=== PATIENT | female | born 1945 | race Caucasian/White ===

== ENCOUNTER → 2019-04-03 | Outpatient (CLI) | payer MEDICARE ==
--- NOTE | 2019-04-03 14:58 | CARD ---
MR#: [id number] Date of Study: 04/03/2019 Ordering Physician: DARÍO JAMISON, Referring Physician: DARÍO JAMISON Tech: Cony Morillo RDCS APPROVED REPORT EXAM: Two-dimensional and M-mode echocardiogram with Doppler and color Doppler. Other Information Quality : Good INDICATION Chest Pain 2D DIMENSIONS RVDd2.7 (2.9-3.5cm)Left Atrium(2D)3.2 (1.6-4.0cm) IVSd1.2 (0.7-1.1cm)Aortic Root(2D)2.9 (2.0-3.7cm) LVDd4.6 (3.9-5.9cm)LVOT Diameter1.8 (1.8-2.4cm) PWd0.9 (0.7-1.1cm)LVDs2.9 (2.5-4.0cm) FS (%) 30.0 %SV63.1 ml LVEF(%)60.0 (>50%) Aortic Valve AoV Peak Bony.156.0cm/sAoV VTI30.8cm AO Peak GR.9.7mmHgLVOT Peak Bony.121.6cm/s LVOT VTI 25.40cmAO Mean GR.5mmHg RAÚL (VMAX)2.15al4OWL (VTI)2.20cm2 Mitral Valve MV E Ptzwxhio25.7cm/sMV DECEL WMSY437ia MV A Znscqroj894.5cm/sE/A Ratio0.7 Tricuspid Valve TR P. Ppihmjet482fg/sRAP KJRDQBQZ2ccLb TR Peak Gr.78fsNkPTIJ96bsOx Pulmonary Vein S1 Urtujtwl72.5cm/sD2 Jsjisteu04.2cm/s LEFT VENTRICLE The left ventricle is normal size. There is mild hypertrophy. The left ventricular systolic function is normal and the ejection fraction is within normal range. The Ejection Fraction is 55-60%. There is normal LV segmental wall motion. Transmitral Doppler flow pattern is Grade I-abnormal relaxation pat tern. RIGHT VENTRICLE The right ventricle is normal size. The right ventricular systolic function is normal. ATRIA The left atrium size is normal. The right atrium size is normal. The interatrial septum is intact wit h no evidence for an atrial septal defect or patent foramen ovale as noted on 2-D or Doppler imaging. AORTIC VALVE The aortic valve is calcified but opens well. Doppler and Color Flow revealed no significant aortic r egurgitation. There is no significant aortic valvular stenosis. MITRAL VALVE The mitral valve is normal in structure and function. Mitral annular calcification is mild. There is no evidence of mitral valve prolapse. There is no mitral valve stenosis. Doppler and Color Flow revea led no mitral valve regurgitation noted. TRICUSPID VALVE The tricuspid valve is normal in structure and function. Doppler and Color Flow revealed trace tricus pid regurgitation. The PA pressure was estimated at 27 mmHg. There is no tricuspid valve stenosis. PULMONIC VALVE Doppler and Color Flow revealed trace pulmonic valvular regurgitation. There is no pulmonic valvular stenosis. GREAT VESSELS The aortic root is normal in size. The ascending aorta is moderately dilated at 3.9 cm. The IVC is no rmal in size and collapses >50% with inspiration. PERICARDIAL EFFUSION There is no evidence of significant pericardial effusion. Critical Notification Critical Value: No <Conclusion> The left ventricular systolic function is normal and the ejection fraction is within normal range. T he Ejection Fraction is 55-60%. There is normal LV segmental wall motion. There is mild hypertrophy. The ascending aorta is moderately dilated at 3.9 cm. Signed by : Berry Green, Electronically Approved : 04/03/2019 14:58:14
== END | disposition home or self-care (01) ==
LOC: ECHO 14:03
PROVIDERS: ATTEND Specialist
DX: I08.0 Rheumatic disorders of both mitral and aortic valves (principal); J45.40 Moderate persistent asthma, uncomplicated
CPT/HCPCS: 93306

== ENCOUNTER → 2020-01-22 | Outpatient (CLI) | payer MEDICARE ==
--- NOTE | 2020-01-22 17:32 | RAD ---
EXAM: CHEST PA LATERAL INDICATION: Reason: chest pain mid sternum, hx asthma, non smoker / Spl. Instructions: / History: . TECHNIQUE: PA and lateral views COMPARISON: None FINDINGS: The heart size is normal. Great vessels show tortuosity to the descending thoracic aorta. There is no hilar or mediastinal mass. The lungs are clear. There is no pleural effusion or pneumothorax. There are no significant osseous abnormalities. IMPRESSION: No active cardiopulmonary disease. Electronically signed by: Daniel España MD (01/22/2020 5:29 PM) [id number]
== END | disposition home or self-care (01) ==
LOC: RAD 17:00
PROVIDERS: ATTEND Specialist
DX: M94.0 Chondrocostal junction syndrome [Tietze] (principal); Q25.46 Tortuous aortic arch
CPT/HCPCS: 71046

== ENCOUNTER → 2020-02-05 | Outpatient (CLI) | payer MEDICARE ==
--- NOTE | 2020-02-14 12:13 | RAD ---
DATE: 02/05/2020 EXAM: MAMMO HIREN SCREENING BILATERAL HISTORY: Screening COMPARISON: 07/27/2018, 06/16/2017 This study was interpreted with the benefit of Computerized Aided Detection (CAD). Breast Density: The breast parenchyma is heterogenously dense, which could reduce sensitivity of mammography. Breast parenchyma level C. FINDINGS: No suspicious mass, suspicious calcification, or architectural distortion in either breast. IMPRESSION: No evidence of malignancy in either breast. BI-RADS CATEGORY: 1 NEGATIVE RECOMMENDED FOLLOW-UP: Annual screening mammogram PQRS compliance statement: Patient information was entered into a reminder system with a target due date 02/05/2021 for the next mammogram. Mammography is a sensitive method for finding small breast cancers, but it does not detect them all and is not a substitute for careful clinical examination. A negative mammogram does not negate a clinically suspicious finding and should not result in delay in biopsying a clinically suspicious abnormality. "Our facility is accredited by the [employer] Mammography Program." DENICE
== END ==
LOC: MAMMO 15:17
PROVIDERS: ATTEND Specialist
DX: Z12.31 Encounter for screening mammogram for malignant neoplasm of breast (principal)
CPT/HCPCS: 77063; 77067

== ENCOUNTER → 2020-03-27 | Outpatient (CLI) | payer MEDICARE ==
--- NOTE | 2020-03-27 10:53 | RAD ---
INDICATION: Osteoporosis screening. Postmenopausal screening COMPARISON: None. TECHNIQUE: Bone densitometry was performed through the lumbar spine and proximal femur. FINDINGS: Lumbar Spine: BMD: 1.19 T-Score: 0 Degenerative changes the spine. Proximal Femur: BMD: 0.93 T-Score: -0.2 IMPRESSION: 1. Lumbar spine falls within the normal range. 2. Proximal femur falls within the normal range. Electronically signed by: Matthew Aquino MD (03/27/2020 10:51 AM) [id number]
== END ==
LOC: DXRAD 10:26
PROVIDERS: ATTEND Specialist
DX: Z00.00 Encounter for general adult medical examination without abnormal findings (principal); Z78.0 Asymptomatic menopausal state
CPT/HCPCS: 77080

== ENCOUNTER 2020-06-09 21:29 | Emergency (ER) | payer MEDICARE ==
[~2020-06-09] VITALS: Ht 157.5 cm; Wt 85.0 kg
[2020-06-09] MEDS ORDERED: DEXAMETHASONE 4 MG TABLET PO ONE (22:00)
[2020-06-09] MEDS ORDERED: PRED20TA PO (22:50)
--- NOTE | 2020-06-09 22:51 | PHYS DOC ---
Past History Past Medical History: Asthma General Adult EDM: Chief Complaint: BURN/SMOKE INHALATION HPI: HPI: Patient is a [age] year old [sex] who presents with [] Review of Systems: Review of Systems: Constitutional: Denies fever or chills Eyes: Denies redness or eye pain HENT: Denies nasal congestion or sore throat Respiratory: Denies cough or shortness of breath Cardiovascular: Denies chest pain or palpitations GI: Denies abdominal pain, nausea, or vomiting : Denies dysuria or hematuria Musculoskeletal: Denies back pain or joint pain Integument: Denies rash or skin lesions Neurologic: Denies headache, focal weakness or sensory changes Complete systems were reviewed and found to be within normal limits, except as documented in this note. Current Medications: Current Meds: Current Medications Medications (Trade) Dose Ordered Sig/Cody Start Time Stop Time Status Last Admin Dose Admin Dexamethasone (Decadron) 10 mg 1X ONCE 06/09/20 22:00 06/09/20 22:01 DC Allergies: Allergies: Allergies Coded Allergies Type Severity Reaction Last Updated Verified aspirin Allergy Severe Hives 06/09/20 Yes meperidine Allergy Severe Hives 06/09/20 Yes Physical Exam: PE: Constitutional: Well developed, well nourished, no acute distress, non-toxic appearance HENT: Normocephalic, atraumatic Eyes: PERRL, EOMI, conjunctiva normal, no discharge Neck: Normal range of motion, no tenderness, supple Lungs & Thorax: No respiratory distress, equal chest rise and fall Abdomen: Soft, no tenderness Skin: Warm, dry, no erythema, no rash Back: No tenderness, no CVA tenderness Extremities: No tenderness, ROM intact, no edema Neurologic: Alert and oriented X 3, normal motor function, normal sensory function, no focal deficits noted Psychologic: Affect normal, judgment normal EKG: EKG: [] Radiology/Procedures: Radiology/Procedures: [] Course & Med Decision Making: Course & Med Decision Making Pertinent Labs and Imaging studies reviewed. (See chart for details) [] Dragon Disclaimer: Dragon Disclaimer: This electronic medical record was generated, in whole or in part, using a voice recognition dictation system. Departure Departure: Impression: Primary Impression: Exposure to chemical inhalation Disposition: 01 DC HOME SELF CARE/HOMELESS Condition: STABLE Referrals: DARÍO JAMISON MD (PCP) Patient Instructions: Inhalation Injury-Brief Additional Instructions: Decontaminate self by changing your clothing after showering and washing your hair, face, and other exposed areas thoroughly with soap/shampoo and water. Scripts Prednisone (PREDNISONE) 20 Mg Tablet 1 TAB PO DAILY for Inhalation injury, #8 TAB Start this prescription tomorrow, Tuesday06/10/20 Prov: JUAN SINGH DO 06/09/20 JUAN SINGH DO Jun 09, 2020 22:51
[2020-06-09 23:25] VITALS: BP 162/89
== END 2020-06-09 23:25 | disposition home or self-care (01) ==
LOC: ER 21:29
DX: Z77.098 Contact with and (suspected) exposure to other hazardous, chiefly nonmedicinal, chemicals (principal); J45.909 Unspecified asthma, uncomplicated; Z88.6 Allergy status to analgesic agent; Z88.8 Allergy status to other drugs, medicaments and biological substances
CPT/HCPCS: 99283; J8540